=== PATIENT | female | born 1960 | race American Indian/Alaskan Native ===

== ENCOUNTER 2016-08-05 08:39 | Emergency (ER) | payer OTHER ==
--- NOTE | 2016-08-05 12:45 | Emergency Department Report ---
HPI - General Chief Complaint: Dizziness Time Seen by Provider: 08/05/16 12:09 - HPI HPI: Room 7 The patient is a 56-year-old female presenting with a chief complaint of dizziness. The patient states for the past 2 weeks she is felt off balance and has had intermittent dizziness. The patient states it worsens turning her head too quickly and moving around. The patient states last week she also had left upper extremity "heaviness" for the 3-4 days. Patient states she had left- sided headache as well. The patient states her symptoms are currently not present. Location: [see above] Duration: Intermittent 2 weeks Quality: Dizziness, heaviness Severity: Moderate Modifying factors: See above Context: [see above] Mode of transportation: Unknown ED Past Medical Hx - Past Medical History Previous Medical History?: Yes Hx Hypertension: Yes - Surgical History Past Surgical History?: Yes Additional Surgical History: partial hysterctomy, left ovarian cyst removed - Family History Family history: no significant - Social History Smoking Status: Former Smoker (none for over 20 years) Substance Use Type: Alcohol (occasional) ED Review of Systems ROS: Stated complaint: DIZZINESS Other details as noted in HPI Comment: All other systems reviewed and negative Constitutional: denies: chills, fever Eyes: denies: eye pain, eye discharge, vision change ENT: denies: ear pain, throat pain Respiratory: denies: cough, shortness of breath, wheezing Cardiovascular: denies: chest pain, palpitations Endocrine: no symptoms reported Gastrointestinal: denies: abdominal pain, nausea, diarrhea Genitourinary: denies: urgency, dysuria, discharge Musculoskeletal: denies: back pain, joint swelling, arthralgia Skin: denies: rash, lesions Neurological: headache, paresthesias, vertigo Psychiatric: denies: anxiety, depression Hematological/Lymphatic: denies: easy bleeding, easy bruising Physical Exam - Physical Exam Vital Signs: Vital Signs 08/05/16 08/05/16 08/05/16 08:57 11:52 11:53 Temperature 98 F 98.1 F Pulse Rate 74 76 Respiratory 16 15 Rate Blood Pressure 131/88 Blood Pressure 125/82 [Right] O2 Sat by Pulse 96 99 99 Oximetry Physical Exam: GENERAL: The patient is well-developed well-nourished female sitting on stretcher not appearing to be in acute distress. [] HEENT: Normocephalic. Atraumatic. Extraocular motions are intact. Patient has moist mucous membranes. No nystagmus NECK: Supple. Trachea midline CHEST/LUNGS: Clear to auscultation. There is no respiratory distress noted. HEART/CARDIOVASCULAR: Regular. There is no tachycardia. There is no gallop rub or murmur. ABDOMEN: Abdomen is soft, nontender. Patient has normal bowel sounds. There is no abdominal distention. SKIN: There is no rash. There is no edema. There is no diaphoresis. NEURO: The patient is awake, alert, and oriented. The patient is cooperative. The patient has no focal neurologic deficits. The patient has normal speech. Cranial nerves II through XII grossly intact, no drift, charge authorizer 5+/5 bilaterally. No dysmetria noted with [id number] bilaterally. No nystagmus MUSCULOSKELETAL: There is no evidence of acute injury. ED Course Vital Signs 08/05/16 08/05/16 08/05/16 08:57 11:52 11:53 Temperature 98 F 98.1 F Pulse Rate 74 76 Respiratory 16 15 Rate Blood Pressure 131/88 Blood Pressure 125/82 [Right] O2 Sat by Pulse 96 99 99 Oximetry ED Medical Decision Making - Lab Data Result diagrams: 08/05/16 13:00 08/05/16 13:00 Laboratory Tests 08/05/16 08/05/16 08/05/16 13:00 13:00 13:00 WBC 11.6 H RBC 4.31 Hgb 13.1 Hct 40.5 MCV 94 MCH 30 MCHC 32 RDW 13.4 Plt Count 268 Lymph % (Auto) 35.2 H [place] % (Auto) 3.8 Eos % (Auto) 1.0 Baso % (Auto) 0.5 Lymph # 4.1 [place] # 0.4 Eos # 0.1 Baso # 0.1 Seg Neutrophils % 59.5 Seg Neutrophils # 6.9 PT 13.2 INR 1.01 APTT 28.8 Sodium 143 Potassium 3.6 Chloride 99.5 Carbon Dioxide 29 Anion Gap 18 BUN 11 Creatinine 0.6 L Estimated GFR > 60 BUN/Creatinine Ratio 18.33 Glucose 112 H Calcium 9.7 Total Creatine Kinase 143 H CK-MB (CK-2) 1.2 CK-MB (CK-2) Rel Index 0.8 Troponin T 08/05/16 13:00 WBC RBC Hgb Hct MCV MCH MCHC RDW Plt Count Lymph % (Auto) [place] % (Auto) Eos % (Auto) Baso % (Auto) Lymph # [place] # Eos # Baso # Seg Neutrophils % Seg Neutrophils # PT INR APTT Sodium Potassium Chloride Carbon Dioxide Anion Gap BUN Creatinine Estimated GFR BUN/Creatinine Ratio Glucose Calcium Total Creatine Kinase CK-MB (CK-2) CK-MB (CK-2) Rel Index Troponin T < 0.010 - EKG Data -: EKG Interpreted by Me EKG shows normal: sinus rhythm Rate: normal - EKG Data When compared to previous EKG there are: previous EKG unavailable - Radiology Data Radiology results: report reviewed (CT head), image reviewed (CT head) CT head (read by radiologist)-no acute intracranial CT abnormality. - Differential Diagnosis TIA, vertigo, CVA Critical care attestation.: If time is entered above; I have spent that time in minutes in the direct care of this critically ill patient, excluding procedure time. ED Disposition Clinical Impression: TIA (transient ischemic attack), Dizziness Disposition: OP ADMITTED IP TO THIS HOSP Is pt being admited?: Yes Does the pt Need Aspirin: Yes Condition: Fair Referrals: GUERLINE HOLT JR, MD [Primary Care Provider] - 3-5 Days Time of Disposition: 13:56 (hospitalist paged)
--- NOTE | 2016-08-05 12:57 | Cat Scan Report ---
CT HEAD WITHOUT CONTRAST INDICATION: Intermittent dizziness and left upper extremity heaviness. COMPARISON: None similar. FINDINGS: Noncontrast head CT demonstrates normal, symmetric ventricles and sulci without acute or recent infarct, hemorrhage, mass effect or midline shift. No abnormal extra-axial fluid collections. Minimal, benign left basal ganglia calcifications. Posterior fossa structures and basilar cisterns appear within normal limits. Partially empty sella. Clear imaged paranasal sinuses and mastoid air cells. Intact calvarium. Normal overlying scalp soft tissues. Numerous radiopaque dental material incidentally noted. CONCLUSION: No acute intracranial CT abnormality, as described. Thank you for the opportunity to participate in this patient's care.
[2016-08-05] MEDS ORDERED: ASPIRIN PO ONE (13:12)
[2016-08-05 13:21] LABS: Basophils % (Auto) 0.5 % (0.0-1.8); Hematocrit 40.5 % (30.3-42.9); Hemoglobin 13.1 gm/dl (10.1-14.3); Mean Corpuscular HGB Conc 32 % (30-34); Mean Corpuscular Hemoglobin 30 pg (28-32); Mean Corpuscular Volume 94 fl (79-97); Platelet Count 268 K/mm3 (140-440); Red Blood Count 4.31 M/mm3 (3.65-5.03); Red Cell Distribution Width 13.4 % (13.2-15.2); White Blood Count 11.6 K/mm3 (4.5-11.0)
[2016-08-05 13:28] LABS: INR 1.01 (0.87-1.13); Partial Thromboplastin Time 28.8 Sec. (24.2-36.6)
--- NOTE | 2016-08-05 13:32 | Admit Criteria Form ---
Admission Criteria Documentation: TRANSIENT ISCHEMIC ATTACK (TIA) Clinical Indications for Admission to Inpatient Care (Place 'X' for any and all applicable criteria): Admission is indicated for ANY ONE of the following(1)(2)(3)(4)(5): [ ]I. Immediate inpatient procedure is needed (eg, endarterectomy). [X]II. Inpatient admission required rather than observation care (Also use Transient Ischemic Attack (TIA): Observation Care Criteria as appropriate) because of ANY ONE of the following: [ ]a) Focal neurologic signs or symptoms persist or recurring [ ]b) Cardiac arrhythmias of immediate concern [ ]c) Clinically significant cardiac disorder identified that requires inpatient care (eg, severe valvular disease, atrial myxoma, cardiomyopathy) [ ]d) Hypertension requiring inpatient treatment [ ]e) Parenteral anticoagulation required (eg, alternative forms of anticoagulation not appropriate or not feasible) as indicated by ALL of the following(13): [ ]i) Temporary subtherapeutic anticoagulation unacceptable because of high risk of short-term venous or arterial thromboembolism due to ANY ONE of the following(14)(15)(16): [ ]1) Atrial fibrillation suspected as etiology of TIA(17)(18)(19)(20)(21) [ ]2) Venous thromboembolism within past 12 months [ ]3) Underlying malignancy [ ]4) Patient with mechanical cardiac valve(22)( 23) [ ]5) Underlying hypercoagulable state (eg, protein C or protein S deficiency antithrombin deficiency, antiphospholipid antibodies) [ ]6) Patient at temporary high risk of thromboembolism (eg, status post orthopedic surgery) [ ]ii) Contraindications to outpatient use of "bridging" agent or alternative oral anticoagulant[B] as indicated by ALL of the following: [ ]1) Contraindication to outpatient use of low- molecular-weight heparin as "bridging" agent as indicated by ANY ONE of the following(15): [ ]A. Documented current or history of heparin-induced thrombocytopenia(24) [ ]B. Severe thrombocytopenia (eg, platelet count less than 50,000/mm3 (75g705/L) [ ]C. Documented allergy to heparin, low- molecular-weight heparin, or pork products [ ]D. Renal failure (creatinine clearance less than 30 mL/min/1.73m2 (0.50mL/sec/1.73m2) or on dialysis) [ ]E. Inability to manage self-injection ( eg, by patient, caregiver, or visiting nurse) [ ]2) Contraindication to outpatient use of fondaparinux as "bridging" agent as indicated by ANY ONE of the following(25)(26 )(27)(28): [ ]A. Severe thrombocytopenia (eg, platelet count less than 50,000/mm3 (50 x109/L)) [ ]B.Hypersensitivity to fondaparinux, related drugs, or product components [ ]C.Renal failure (creatinine clearance less than 30 mL/min/1.73m2 (0.50mL/sec/1.73m2) or on dialysis) [ ]D.Inability to manage self-injection ( eg, by patient, caregiver, or visiting nurse [ ]3. Oral direct thrombin inhibitor (eg, dabigatran) or oral coagulation factor Xa inhibitor (eg, rivaroxaban, apixaban) not appropriate as oral anticoagulation (eg, indication not appropriate) or contraindicated (eg, hypersensitivity, creatinine clearance less than 15 mL/min/1.73m2 ( 0.25 mL/sec/1.73m2) or on dialysis). [ ]f) Continuous IV infusion of anticoagulant, platelet inhibitor, vasoactive or antiarrhythmia(18)(19) [X]g) Other condition, treatment, or monitoring requiring inpatient admission [ ]III. Contraindications and/or Inappropriate clinical situations for Observational Care in patients with Transient Ischemic Attack (TIA), when ANY ONE of the following is required: [ ]a) Patient with persistent or severe neurological deficit 24 [ ]b) Patient with acute CVA or other identified pathology should be admitted to inpatient for further care 25 [ ]IV. General contraindications and/or Inappropriate clinical situations for Observational Care in patients with Transient Ischemic Attack (TIA), when ANY ONE of the following is required: [ ]a) Prediction of prolongation of LOS based on ANY ONE of the following may be considered as a contraindication for observational care 2, 3, 4, 5, 6, 7, 8, 9, 10, 11 [ ]i) Age > 65 yrs. [ ]ii) Patient arriving by ambulance [ ]iii) Patient with high acuity [ ]iv) Patient requiring vital sign monitoring [ ]v) Patient on IV medication [ ]b) Systolic blood pressures 180mmHg 3,12 [ ]c) Patient with altered mental status including delirium and other alteration of consciousness, (3) [ ]d) Patient whose discharge disposition will be to a long term home or rehabilitation home should not be managed in Emergency Department Observation Unit. CMS rule requires 3 days hospital stay before such placement.3,13 [ ]e) Patient with failure to thrive due to broad array of etiologies 3,16,17 [ ]f) Inability to ambulate 3,14 Extended stay beyond goal length of stay may be needed for(4)(30)(32): [ ]a) Parenteral anticoagulation required [ ]b) Dangerous arrhythmia [ ]c) Cardiac valvular disorder, atrial myxoma, cardiomyopathy [ ]d) Uncontrolled severe hypertension [ ]e) Severe carotid stenosis [ ]f) Active comorbidities (eg, heart failure) [ ]g) Extracranial vertebrobasilar disease(29) [ ]h) Clinical evolution of TIA into cerebrovascular accident (stroke) The original txtr content created by [employer] has been revised. The portions of thecontent which have been revised are identified through the use of italic text or in bold, and [facility] has neither reviewed nor approved the modified material. All other unmodified content is copyright [employer]. Please see references footnoted in the original txt[employer] edition 2016
[2016-08-05 13:43] LABS: Creatine Kinase MB 1.2 ng/mL (0.0-4.0)
[2016-08-05 13:45] LABS: Anion Gap 18 mmol/L; BUN/Creatinine Ratio 18.33; Blood Urea Nitrogen 11 mg/dL (7-17); Calcium 9.7 mg/dL (8.4-10.2); Carbon Dioxide 29 mmol/L (22-30); Chloride 99.5 mmol/L (98-107); Creatine Kinase 143 units/L (30-135); Glucose 112 mg/dL (65-100); Potassium 3.6 mmol/L (3.6-5.0); Sodium 143 mmol/L (137-145)
--- NOTE | 2016-08-05 15:31 | Event Note ---
Date: 08/05/16 C/o Dizziness for 2 weeks L arm tightness one week ago which has resolved power 5/5 in all 4 extremities D/c on Mecliine 10 mg q 12 h F/u with Dr Mai-PCP
[2016-08-05 17:56] VITALS: BP 120/73
== END 2016-08-05 17:57 | disposition admitted as inpatient to this hospital (09) ==
LOC: ED 08:39
DX: G45.9 Transient cerebral ischemic attack, unspecified (principal); I10 Essential (primary) hypertension; Z90.710 Acquired absence of both cervix and uterus; Z87.891 Personal history of nicotine dependence
CPT/HCPCS: 36415; 70450; 80048; 82550; 82553; 84484; 85025; 85610; 85730; 93005; 93010

== ENCOUNTER 2018-11-20 11:03 | Emergency (ER) | payer OTHER ==
--- NOTE | 2018-11-20 12:33 | Emergency Department Report ---
HPI - General Chief Complaint: Dyspnea/Respdistress Time Seen by Provider: 11/20/18 12:19 - HPI HPI: 58-year-old female presents to the emergency Department from the office of her service manager, Dr. Medrano, with an order for an ultrasound- guided left-sided thoracentesis and multiple labs to test the pleural fluids. The patient's been dealing with shortness of breath, pneumonia, and a recurrent pleural effusion for the past month. She was just sent in to see Dr. Medrano today for the first time by her primary care physician, Rhys Mai. She otherwise has a past medical history of hypertension for which she takes verapamil. She denies any fever, chest pain, nausea, vomiting or diaphoresis. ED Past Medical Hx - Past Medical History Previous Medical History?: Yes Hx Hypertension: Yes Additional medical history: pneumonia - Surgical History Past Surgical History?: Yes Additional Surgical History: partial hysterctomy, left ovarian cyst removed - Social History Smoking Status: Former Smoker Substance Use Type: Alcohol - Medications Home Medications: Home Medications Medication Instructions Recorded Confirmed Last Taken Type Meclizine [Antivert] 10 mg PO BID PRN #30 tablet 08/05/16 Unknown Rx ED Review of Systems ROS: Stated complaint: Other details as noted in HPI Comment: All other systems reviewed and negative Constitutional: denies: chills, fever Eyes: denies: eye pain, vision change ENT: denies: ear pain, throat pain Respiratory: shortness of breath, SOB with exertion Cardiovascular: denies: chest pain, palpitations Gastrointestinal: denies: abdominal pain, vomiting Genitourinary: denies: dysuria, discharge Musculoskeletal: denies: back pain, arthralgia Skin: denies: rash, lesions Neurological: denies: headache, weakness Physical Exam - Physical Exam Vital Signs: Vital Signs 11/20/18 11:42 Temperature 98.1 F Pulse Rate 82 Respiratory 18 Rate Blood Pressure 153/94 O2 Sat by Pulse 96 Oximetry Physical Exam: GENERAL: The patient is well-developed well-nourished. HENT: Normocephalic. Atraumatic. Patient has moist mucous membranes. EYES: Extraocular motions are intact. NECK: Supple. Trachea is midline. CHEST/LUNGS: Coarse breath sounds on the left side. No tachypnea or accessory muscle use.. There is no respiratory distress noted. HEART/CARDIOVASCULAR: Regular. There is no tachycardia. There is no murmur. ABDOMEN: There is no abdominal distention. SKIN: Skin is warm and dry. NEURO: The patient is awake, alert, and oriented. The patient is cooperative. The patient has no focal neurologic deficits. The patient has normal speech. MUSCULOSKELETAL: There is no tenderness or deformity. There is no evidence of acute injury. ED Course Vital Signs 11/20/18 11:42 Temperature 98.1 F Pulse Rate 82 Respiratory 18 Rate Blood Pressure 153/94 O2 Sat by Pulse 96 Oximetry ED Medical Decision Making - Lab Data Result diagrams: 11/20/18 12:53 11/20/18 12:53 - Radiology Data Radiology results: report reviewed, image reviewed interpreted by me: Chest x-ray shows a moderate left-sided pleural effusion. CHEST 2 VIEWS INDICATION / CLINICAL INFORMATION: Post-thoracentesis. COMPARISON: Chest x-ray done earlier on 11/20/2018. FINDINGS: SUPPORT DEVICES: None. HEART / MEDIASTINUM: No significant abnormality. LUNGS / PLEURA: Moderately decreased size of the left pleural effusion following thoracentesis with tiny residual. No pneumothorax. ADDITIONAL FINDINGS: No significant additional findings. IMPRESSION: 1. Only tiny residual pleural effusion on the left following thoracentesis, improved from the prior study. No appreciable pneumothorax. Ultrasound-Guided Thoracentesis HISTORY: recurrent left sided pleural effusion. COMPARISON: None PROCEDURE: The risks (including but not limited to bleeding, infection, and pneumothorax) and benefits were explained to the patient and informed consent was obtained. A time out procedure was performed. Ultrasound was used to evaluate the left pleural effusion and locate the optimal site for needle entry. Once the skin was marked, the procedure site was prepped and draped in the usual sterile fashion and lidocaine was used for local anesthesia. A skin thanh was made and a 5-[place] thoracentesis catheter was placed. The patient was monitored closely throughout the procedure, and a total of 450 mL of yellow, slightly cloudy fluid was aspirated. Samples were sent to the lab for further evaluation per the primary clinicians orders. The patient tolerated the procedure well with no complications. A post-procedure chest x-ray was immediately ordered. IMPRESSION: Successful thoracentesis as above with a total of 450 mL of yellow, slightly cloudy fluid aspirated. - Medical Decision Making This patient was sent in by her service manager for ultrasound-guided thoracentesis to look into a recurrent left-sided pleural effusion. Due to insurance issues, the patient was unable to go directly to outpatient imaging and have this done. I spoke with one of the pulmonologists from that practice he was able to place all of the orders for the pleural fluids and cytology. I spoke with the referring service manager as well who says that the patient could follow-up outpatient after the procedures done if she is stable. The labs that were done prior to the thoracentesis were unremarkable. We do not yet have the labs from the pleural fluid for cytology and this is information for the pulmonology service. The patient had a successful thoracentesis without 450 ML's of yellow slightly cloudy fluid removed and sent for further testing. One hour later, the patient had another chest x-ray that showed a great improvement in the pleural fluid and no obvious pneumothorax. Her vital signs of unstable throughout her ED course. She will be discharged home to follow-up with her primary care physician and service manager. - Differential Diagnosis pneumonia, malignancy, fungal infection Critical Care Time: No Critical care attestation.: If time is entered above; I have spent that time in minutes in the direct care of this critically ill patient, excluding procedure time. ED Disposition Clinical Impression: Pleural effusion, Status post thoracentesis Disposition: DC-01 TO HOME OR SELFCARE Is pt being admited?: No Condition: Stable Instructions: Pleural Effusion (ED) Referrals: FE MEDRANO MD [Staff Physician] - 3-5 Days RHYS MAI JR, MD [Primary Care Provider] - 3-5 Days Time of Disposition: 19:22
[2018-11-20 13:12] LABS: Basophils # (Auto) 0.1 K/mm3 (0.0-0.1); Basophils % (Auto) 0.6 % (0.0-1.8); Eosinophils # (Auto) 0.1 K/mm3 (0.0-0.4); Eosinophils % (Auto) 1.3 % (0.0-4.3); Hematocrit 38.4 % (30.3-42.9); Lymphocytes % (Auto) 26.8 % (13.4-35.0); Mean Corpuscular HGB Conc 34 % (30-34); Mean Corpuscular Volume 93 fl (79-97); Monocytes # (Auto) 0.5 K/mm3 (0.0-0.8); Monocytes % (Auto) 4.5 % (0.0-7.3); Platelet Count 294 K/mm3 (140-440); Red Blood Count 4.12 M/mm3 (3.65-5.03); Red Cell Distribution Width 13.1 % (13.2-15.2)
[2018-11-20 13:18] LABS: BUN/Creatinine Ratio 14; Blood Urea Nitrogen 10 mg/dL (7-17); Calcium 9.5 mg/dL (8.4-10.2); Hemolysis Index 12
[2018-11-20 13:23] LABS: INR 1.12 (0.87-1.13); Partial Thromboplastin Time 29.2 Sec. (24.2-36.6)
--- NOTE | 2018-11-20 14:09 | XRay Report ---
CHEST 1 VIEW INDICATION: pleural effusion. Shortness of breath and pleural effusion for the past month COMPARISON: FINDINGS: Support devices: None. Heart: Mild cardiomegaly. Lungs/Pleura: Pulmonary vessels are within normal limits. A small to medium left pleural effusion is suspected. No obvious pneumonia or pneumothorax. Additional findings: None. IMPRESSION: Mild cardiomegaly. Small to medium left pleural effusion. Signer Name: Rico Wagner Jr, MD Signed: 11/20/2018 2:04 PM Workstation Name: [id number]
--- NOTE | 2018-11-20 15:48 | Procedure Note ---
Date of procedure: 11/20/18 Pre-op diagnosis: left pleural effusion Post-op diagnosis: same Procedure: US thoracentesis, left Findings: moderate left pleural fluid Anesthesia: local Surgeon: LEONEL TOWNSEND Estimated blood loss: none Pathology: list (120cc) Specimen disposition: to lab Condition: stable Disposition: other (back to ER)
--- NOTE | 2018-11-20 15:56 | Ultrasound Report ---
Ultrasound-Guided Thoracentesis HISTORY: recurrent left sided pleural effusion. COMPARISON: None PROCEDURE: The risks (including but not limited to bleeding, infection, and pneumothorax) and benefi ts were explained to the patient and informed consent was obtained. A time out procedure was perform ed. Ultrasound was used to evaluate the left pleural effusion and locate the optimal site for needle entr y. Once the skin was marked, the procedure site was prepped and draped in the usual sterile fashion and lidocaine was used for local anesthesia. A skin thanh was made and a 5-Khmer thoracentesis mars ter was placed. The patient was monitored closely throughout the procedure, and a total of 450 mL of yellow, slightly cloudy fluid was aspirated. Samples were sent to the lab for further evaluation pe r the primary clinicians orders. The patient tolerated the procedure well with no complications. A post-procedure chest x-ray was imm ediately ordered. IMPRESSION: Successful thoracentesis as above with a total of 450 mL of yellow, slightly cloudy fluid aspirated. Signer Name: Rico Wagner Jr, MD Signed: 11/20/2018 3:52 PM Workstation Name: [id number]
--- NOTE | 2018-11-20 17:33 | XRay Report ---
CHEST 2 VIEWS INDICATION / CLINICAL INFORMATION: Post-thoracentesis. COMPARISON: Chest x-ray done earlier on 11/20/2018. FINDINGS: SUPPORT DEVICES: None. HEART / MEDIASTINUM: No significant abnormality. LUNGS / PLEURA: Moderately decreased size of the left pleural effusion following thoracentesis with t iny residual. No pneumothorax. ADDITIONAL FINDINGS: No significant additional findings. IMPRESSION: 1. Only tiny residual pleural effusion on the left following thoracentesis, improved from the prior s tudy. No appreciable pneumothorax. Signer Name: Aris Interiano MD Signed: 11/20/2018 5:29 PM Workstation Name: [id number]
[2018-11-20 18:29] LABS: Monocytes Body Fluid 0 %; Total Cells Counted 100 /mm3
[2018-11-20 19:58] VITALS: BP 142/80
[2018-11-26 08:11] LABS: LDH,Body Fluid 305; Triglycerides,Body Fluid 19; pH, Body Fluid 7.6
== END 2018-11-20 17:45 | disposition home or self-care (01) ==
LOC: CATHLABREC 11:03 → ED 11:03 → EDSTATUS 12:00 → ED 17:45
DX: J90 Pleural effusion, not elsewhere classified (principal); I10 Essential (primary) hypertension; Z98.890 Other specified postprocedural states; Z90.710 Acquired absence of both cervix and uterus; Z87.891 Personal history of nicotine dependence
CPT/HCPCS: 32555; 36415; 71045; 71046; 80048; 82040; 82947; 83605; 84160; 84478; 85025; 85610; 85730; 87102; 87116; 87220; 88112; 88305; 88312; 88341; 88342; 89051